=== PATIENT | male | born 1985 | race Caucasian/White ===

== ENCOUNTER 2020-03-16 19:55 | Emergency (ER) | payer SELFPAY ==
[~2020-03-16] VITALS: Ht 170.2 cm; Wt 75.7 kg
[2020-03-16 20:02] VITALS: Ht 170.2 cm; Wt 75.7 kg
[2020-03-16 21:54] VITALS: BP 130/75
== END 2020-03-16 21:54 | disposition home or self-care (01) ==
LOC: ED 19:55
DX: S61.411A Laceration without foreign body of right hand, initial encounter (principal); W25.XXXA Contact with sharp glass, initial encounter; Y93.89 Activity, other specified; Y92.89 Other specified places as the place of occurrence of the external cause; Y99.8 Other external cause status
CPT/HCPCS: 90715; J2001

== ENCOUNTER 2020-03-18 10:08 | Emergency (ER) | payer SELFPAY ==
[~2020-03-18] VITALS: Ht 170.2 cm; Wt 76.7 kg
[2020-03-18 10:17] VITALS: Ht 170.2 cm; Wt 76.7 kg
[2020-03-18 10:46] VITALS: BP 130/87
== END 2020-03-18 10:43 | disposition home or self-care (01) ==
LOC: ED 10:08
DX: S61.411D Laceration without foreign body of right hand, subsequent encounter (principal); W26.8XXD Contact with other sharp object(s), not elsewhere classified, subsequent encounter

== ENCOUNTER 2020-03-31 10:54 | Emergency (ER) | payer SELFPAY ==
[~2020-03-31] VITALS: Ht 170.2 cm; Wt 77.1 kg
[2020-03-31 11:00] VITALS: Ht 170.2 cm; Wt 77.1 kg
[2020-03-31 11:52] VITALS: BP 145/74
== END 2020-03-31 11:52 | disposition home or self-care (01) ==
LOC: ED 10:54
DX: S61.411D Laceration without foreign body of right hand, subsequent encounter (principal); X58.XXXD Exposure to other specified factors, subsequent encounter